=== PATIENT | female | born 1980 | race African-American/Black ===

== ENCOUNTER 2019-08-30 00:42 | Emergency (ER) | payer OTHER ==
[~2019-08-30] VITALS: Ht 157.5 cm; Wt 40.8 kg
[2019-08-30 03:46] VITALS: BP 115/82
== END 2019-08-30 03:47 | disposition home or self-care (01) ==
LOC: ER 00:42
DX: E87.2 Acidosis (principal); I13.2 Hypertensive heart and chronic kidney disease with heart failure and with stage 5 chronic kidney disease, or end stage renal disease; E11.22 Type 2 diabetes mellitus with diabetic chronic kidney disease; N18.6 End stage renal disease; I50.9 Heart failure, unspecified; E87.5 Hyperkalemia; N25.89 Other disorders resulting from impaired renal tubular function; D64.89 Other specified anemias; R41.82 Altered mental status, unspecified; Z99.2 Dependence on renal dialysis